=== PATIENT | female | born 1950 | race Caucasian/White ===

== ENCOUNTER 2018-04-14 14:03 | Emergency (ER) | payer OTHER ==
[~2018-04-14] VITALS: Ht 162.6 cm; Wt 54.4 kg
[2018-04-14 14:04] VITALS: BP 169/67
[2018-04-14] MEDS ORDERED: VALIUM5 MG PO (14:40)
[2018-04-14] MEDS ORDERED: NORCO 5-325 TA1 EACH PO (14:40)
== END 2018-04-14 17:06 | disposition home or self-care (01) ==
LOC: ER 14:03
DX: S39.012A Strain of muscle, fascia and tendon of lower back, initial encounter (principal); F32.9 Major depressive disorder, single episode, unspecified; Z88.1 Allergy status to other antibiotic agents; W51.XXXA Accidental striking against or bumped into by another person, initial encounter; Y93.H1 Activity, digging, shoveling and raking; Y92.89 Other specified places as the place of occurrence of the external cause; Y99.8 Other external cause status

== ENCOUNTER 2019-12-15 02:26 | Emergency (ER) | payer OTHER ==
[~2019-12-15] VITALS: Ht 162.6 cm; Wt 56.7 kg
[~2019-12-15 02:26] MED LIST: NORCO 5-325 TA1 EACH PO; VALIUM5 MG PO
[2019-12-15 02:27] VITALS: BP 162/70
[2019-12-15] MEDS ORDERED: NORFLEX100 MG PO (03:09)
[2019-12-15] MEDS ORDERED: NAPROXEN375 MG PO (03:09)
== END 2019-12-15 03:44 | disposition home or self-care (01) ==
LOC: ER 02:26
DX: M46.1 Sacroiliitis, not elsewhere classified (principal); M62.830 Muscle spasm of back; R10.9 Unspecified abdominal pain; F32.9 Major depressive disorder, single episode, unspecified; Z79.899 Other long term (current) drug therapy; Z88.1 Allergy status to other antibiotic agents

== ENCOUNTER → 2020-02-16 | Outpatient (CLI) | payer OTHER ==
[~2020-02-16] MED LIST changes: +NAPROXEN375 MG PO; +NORFLEX100 MG PO
== END ==
LOC: LAB 09:29
PROVIDERS: ATTEND Nurse Practitioner
DX: R05 Cough (principal); R50.9 Fever, unspecified; Z20.828 Contact with and (suspected) exposure to other viral communicable diseases

== ENCOUNTER → 2020-11-12 | Outpatient (CLI) | payer OTHER | LOC: SJCVCIMAG 10:56 | PROVIDERS: ATTEND Family Medicine | DX: I65.23 Occlusion and stenosis of bilateral carotid arteries (principal); E78.5 Hyperlipidemia, unspecified ==